=== PATIENT | male | born 1955 | race Caucasian/White ===

== ENCOUNTER 2020-03-18 08:18 | Outpatient (CLI) | payer OTHER ==
[2020-03-18] MEDS ORDERED: IBUP-1221 PO (09:12)
[2020-03-18] MEDS ORDERED: GABA600T7 PO (09:12)
[2020-03-18] MEDS ORDERED: ALBU8.5H8 INH (09:12)
[2020-03-18] MEDS ORDERED: TAMS-11 PO (09:12)
[2020-03-18 09:38] LABS: BASOPHILS # (AUTO) 0.04 x10^3/uL (0-0.1); BASOPHILS % (AUTO) 1 % (0-1); EOSINOPHILS # (AUTO) 0.11 x10^3/uL (0-0.4); EOSINOPHILS % (AUTO) 1 % (1-7); LYMPHOCYTES % (AUTO) 39 % (22-44); MD NO; MEAN CORPUSCULAR HEMOGLOBIN 32.7 pg (27.5-34.5); MEAN CORPUSCULAR HGB CONC 33.5 g/dL (33.2-36.2); MEAN CORPUSCULAR VOLUME 97.4 fL (81-97); MEAN PLATELET VOLUME 7.2 fL (7.4-10.4); MONOCYTES # (AUTO) 0.57 x10^3/uL (0.2-0.8); MONOCYTES % (AUTO) 7 % (2-9); NEUTROPHILS # (AUTO) 4.19 x10^3/uL (1.8-6.8); NEUTROPHILS % (AUTO) 52 % (42-75); PLATELET COUNT 309 x10^3/uL (130-400); RED BLOOD COUNT 4.36 x10^6/uL (4.38-5.82); RED CELL DISTRIBUTION WIDTH 15.8 % (9.4-14.8)
[2020-03-18 09:46] LABS: MICROSCOPIC AUTO
[2020-03-18 09:48] LABS: INTERNATIONAL NORMALIZED RATIO 0.94 (0.93-1.1)
[2020-03-18 09:51] LABS: ALANINE AMINOTRANSFERASE 30 U/L (12-78); ALBUMIN 4.1 g/dL (3.4-5.0); ANION GAP 6 mmol/L (5-15); CALCIUM 9.4 mg/dL (8.5-10.1); CHLORIDE 107 mmol/L (98-107); CREATININE 1.31 mg/dL (0.7-1.3)
[2020-03-18 09:54] LABS: ALKALINE PHOSPHATASE 68 U/L (45-117); BILIRUBIN,TOTAL 0.5 mg/dL (0.2-1.0); TOTAL PROTEIN 7.9 g/dL (6.4-8.2)
[2020-03-26] MEDS ORDERED: METH750T87 PO (10:01)
[2020-03-26] MEDS ORDERED: OXYC-302 PO (10:01)
[2020-03-26] MEDS ORDERED: METH4TAB2 PO (10:02)
== END 2020-03-18 23:59 | disposition home or self-care (01) ==
LOC: STAR 08:18
PROVIDERS: ATTEND Neurological Surgery
DX: Z01.811 Encounter for preprocedural respiratory examination (principal); Z01.810 Encounter for preprocedural cardiovascular examination; Z01.812 Encounter for preprocedural laboratory examination; M48.02 Spinal stenosis, cervical region; M47.12 Other spondylosis with myelopathy, cervical region; R79.1 Abnormal coagulation profile; R82.90 Unspecified abnormal findings in urine; R94.31 Abnormal electrocardiogram [ECG] [EKG]
CPT/HCPCS: 36415; 71046; 80053; 81001; 85025; 85610; 85730; 93005